=== PATIENT | female | born 1980 | race Two or more races ===

== ENCOUNTER 2022-11-22 19:20 | Inpatient (IN) | payer MEDICAID, OTHER ==
[~2022-11-22] VITALS: Ht 157.5 cm; Wt 124.0 kg
[2022-11-22 20:45] LABS: Basophils # (auto) 0 10 ^3/uL (0-0.2); Hematocrit 34.6 % (36.0-46.0); Hemoglobin 10.9 g/dL (12.2-16.2); Lymphocytes # (auto) 1.8 10 ^3/uL (0.4-5.4); Monocytes # (auto) 0.9 10 ^3/uL (0-1.3); White Blood Cell 8.9 10^3/uL (4.4-10.8)
[2022-11-22 20:47] LABS: Basophils % (auto) 0.3 % (0.0-2.0); Eosinophils # (auto) 0.1 10 ^3/uL (0-0.8); Eosinophils % (auto) 0.6 % (0.0-7.0); Lymphocytes % (auto) 19.9 % (10.0-50.0); Mean Corpuscular Hemoglobin 24.7 pg (28.0-32.0); Mean Corpuscular Hgb Conc. 31.6 g/dL (32.0-36.0); Mean Corpuscular Volume 78.4 fL (80.0-100.0); Monocytes % (auto) 9.6 % (0.0-12.0); Neutrophils # (auto) 6.2 10 ^3/uL (1.6-8.6); Neutrophils % (auto) 69.6 % (37.0-80.0); Red Blood Cells 4.42 10^6/uL (4.0-5.20); Red Cell Distribution Width 16.9 % (11.8-14.3)
[2022-11-22 21:02] LABS: Albumin 4.2 g/dL (3.4-5.0); Calcium 8.8 mg/dL (8.5-10.1); Potassium 3.3 mmol/L (3.5-5.1)
[2022-11-22 21:05] LABS: BUN/Creatinine Ratio 7.8; Bilirubin, Total 0.4 mg/dL (0.2-1.0); Total Protein 8.7 g/dL (6.4-8.2)
[2022-11-23] MEDS ORDERED: MORPHINE SULFATE 4 MG/ML SYR/VIAL IV ONE (04:45)
[2022-11-23] MEDS ORDERED: ONDANSETRON HCL 4 MG/2 ML VIAL IV ONE (04:45)
[2022-11-23] MEDS ORDERED: LACTATED RINGER'S 1,000 ML IV ONE (04:45)
[2022-11-23 05:38] LABS: Urine Blood 1+ /uL (Negative); Urine Specific Gravity 1.008 (1.001-1.035)
[2022-11-23] MEDS ORDERED: NITROGLYCERIN 0.4 MG SL TAB SL PRN (06:15)
[2022-11-23] MEDS ORDERED: SODIUM CHLORIDE 0.9% 1,000 ML IV SCH (06:15)
[2022-11-23] MEDS ORDERED: HYDROcodone-ACET 5/325MG TAB PO PRN (06:15)
[2022-11-23] MEDS ORDERED: MORPHINE SULFATE INJ 2 MG/ml SYRG IV PRN ×2 (06:15)
[2022-11-23] MEDS ORDERED: ONDANSETRON HCL 4 MG/2 ML VIAL IV PRN (06:15)
[2022-11-23] MEDS ORDERED: POTASSIUM CHL 20 Meq TABLET PO ONE (06:30)
[2022-11-23 07:05] LABS: Basophils # (auto) 0.1 10 ^3/uL (0-0.2); Eosinophils # (auto) 0 10 ^3/uL (0-0.8); Eosinophils % (auto) 0.3 % (0.0-7.0); Hemoglobin 9.7 g/dL (12.2-16.2); Lymphocytes # (auto) 1.4 10 ^3/uL (0.4-5.4); Lymphocytes % (auto) 16.3 % (10.0-50.0); Mean Corpuscular Hemoglobin 24.4 pg (28.0-32.0); Mean Corpuscular Hgb Conc. 31.3 g/dL (32.0-36.0); Monocytes # (auto) 0.8 10 ^3/uL (0-1.3); Monocytes % (auto) 9.2 % (0.0-12.0); Neutrophils # (auto) 6.3 10 ^3/uL (1.6-8.6); Neutrophils % (auto) 73.2 % (37.0-80.0); Nucleated Red Blood Cells % 0.1 %; Red Blood Cells 3.98 10^6/uL (4.0-5.20); Red Cell Distribution Width 17.1 % (11.8-14.3); White Blood Cell 8.6 10^3/uL (4.4-10.8)
[2022-11-23 07:20] LABS: Albumin 3.5 g/dL (3.4-5.0); Calcium 8.2 mg/dL (8.5-10.1)
[2022-11-23 07:24] LABS: BUN/Creatinine Ratio 11.6; Bilirubin, Total 0.8 mg/dL (0.2-1.0); Total Protein 7.6 g/dL (6.4-8.2)
[2022-11-23 07:28] LABS: Potassium 2.7 mmol/L (3.5-5.1)
[2022-11-23] MEDS ORDERED: FAMOTIDINE (10MG/ML) 2ML VL IV SCH (10:00)
[2022-11-23] MEDS ORDERED: POTASSIUM EFFERVESENT TAB 25 MEQ PO ONE (10:15)
[2022-11-23 13:42] LABS: Hepatitis B Surface Antibody Negative (Negative)
[2022-11-23 14:20] LABS: Hepatitis A Total Antibody Positive (Negative)
[2022-11-23 15:25] LABS: Hepatitis C Antibody Negative (Negative)
[2022-11-23] MEDS ORDERED: POTASSIUM EFFERVESENT TAB 25 MEQ GT ONE (16:00)
[2022-11-23] MEDS: SOD CHL 0.9%/ KCL 20MEQ 1,000 ML IV SCH (16:56)
[2022-11-23] MEDS ORDERED: LORazepam 0.5 MG TAB PO PRN (17:45)
[2022-11-23 22:00] VITALS: BP 153/86
[2022-11-23] MEDS: IBUPROFEN 600 MG TAB PO PRN (22:36)
[2022-11-23] MEDS: POTASSIUM EFFERVESENT TAB 25 MEQ GT SCH (22:37)
[2022-11-23 23:09] VITALS: BP 153/86
[2022-11-24 04:54] VITALS: BP 151/108
[2022-11-24] MEDS: SOD CHL 0.9%/ KCL 20MEQ 1,000 ML IV SCH (05:14)
[2022-11-24] MEDS: IBUPROFEN 600 MG TAB PO PRN (05:14)
[2022-11-24 06:20] LABS: % Iron Saturation 5.4 % (15-50)
[2022-11-24 06:25] LABS: Albumin 3.2 g/dL (3.4-5.0); Calcium 8.2 mg/dL (8.5-10.1); Magnesium 1.8 mg/dL (1.6-2.6); Potassium 3.8 mmol/L (3.5-5.1)
[2022-11-24 06:29] LABS: Basophils # (auto) 0 10 ^3/uL (0-0.2); Basophils % (auto) 0.2 % (0.0-2.0); Eosinophils # (auto) 0.1 10 ^3/uL (0-0.8); Hemoglobin 9.4 g/dL (12.2-16.2); Lymphocytes # (auto) 1.5 10 ^3/uL (0.4-5.4); Mean Corpuscular Volume 78.3 fL (80.0-100.0); Monocytes # (auto) 0.5 10 ^3/uL (0-1.3); Neutrophils # (auto) 3.7 10 ^3/uL (1.6-8.6)
[2022-11-24 06:30] LABS: BUN/Creatinine Ratio 8.8; Bilirubin, Total 0.5 mg/dL (0.2-1.0); Hematocrit 30.6 % (36.0-46.0); Lymphocytes % (auto) 25.6 % (10.0-50.0); Mean Corpuscular Hgb Conc. 30.7 g/dL (32.0-36.0); Monocytes % (auto) 9.1 % (0.0-12.0); Neutrophils % (auto) 64.1 % (37.0-80.0); Nucleated Red Blood Cells % 0.1 %; Red Blood Cells 3.91 10^6/uL (4.0-5.20); Total Protein 7.3 g/dL (6.4-8.2); White Blood Cell 5.8 10^3/uL (4.4-10.8)
[2022-11-24 07:33] LABS: Ferritin 13.3 ng/mL (10-322)
[2022-11-24] MEDS: POTASSIUM EFFERVESENT TAB 25 MEQ GT SCH (08:27)
[2022-11-24 09:00] VITALS: BP 128/75
[2022-11-24] MEDS ORDERED: THIAMINE 100mg/ml INJ (200mg/2ml VIAL) IV SCH (10:00)
[2022-11-24] MEDS ORDERED: MULTIPLE VITAMIN TAB PO SCH (10:00)
[2022-11-24 13:00] VITALS: BP 138/75
[2022-11-24] MEDS ORDERED: THIA100T13 PO (13:24)
[2022-11-24] MEDS ORDERED: FER325T PO (13:24)
[2022-11-24] MEDS ORDERED: ACAM1TAB4 OR (13:24)
[2022-11-24 15:33] VITALS: BP 138/75
== END 2022-11-24 16:40 | disposition home or self-care (01) | DRG 532 ==
LOC: ER 19:20 → OVERFLOW 11-23 06:07 → CENTRAL 11-23 21:50
PROVIDERS: ADMIT Nurse Practitioner Family; ATTEND Student in an Organized Health Care Education/Training Program
DX: D26.9 Other benign neoplasm of uterus, unspecified (principal); K75.81 Nonalcoholic steatohepatitis (NASH); Z68.43 Body mass index [BMI] 50.0-59.9, adult; E87.1 Hypo-osmolality and hyponatremia; D50.9 Iron deficiency anemia, unspecified; F10.90 Alcohol use, unspecified, uncomplicated; D75.839 Thrombocytosis, unspecified; R33.9 Retention of urine, unspecified; E66.9 Obesity, unspecified; E87.6 Hypokalemia; Z20.822 Contact with and (suspected) exposure to COVID-19; K59.00 Constipation, unspecified; K80.20 Calculus of gallbladder without cholecystitis without obstruction; R00.0 Tachycardia, unspecified; R79.89 Other specified abnormal findings of blood chemistry; N85.2 Hypertrophy of uterus; Z87.440 Personal history of urinary (tract) infections
CPT/HCPCS: 36415; 71045; 74176; 76705; 80053; 81003; 82607; 82728; 83540; 83550; 83690; 83735; 84132; 84484; 85025; 86704; 86706; 86708; 86803; 87340; 87426; 96361; 96365; 96375; G0378; J2405; J3490

== ENCOUNTER 2022-11-25 10:41 | Emergency (ER) | payer MEDICAID ==
[~2022-11-25] VITALS: Ht 157.5 cm; Wt 123.7 kg
[~2022-11-25 10:41] MED LIST: ACAM1TAB4 OR; FER325T PO; THIA100T13 PO
[2022-11-25 11:24] VITALS: BP 152/101
== END 2022-11-25 13:31 | disposition home or self-care (01) ==
LOC: ER 10:41
DX: R33.9 Retention of urine, unspecified (principal); Z46.6 Encounter for fitting and adjustment of urinary device
CPT/HCPCS: 51702

== ENCOUNTER 2022-11-29 13:05 | Emergency (ER) | payer MEDICAID ==
[~2022-11-29] VITALS: Ht 157.5 cm; Wt 120.2 kg
[2022-11-29 13:14] VITALS: BP 110/55
== END 2022-11-29 15:03 | disposition home or self-care (01) ==
LOC: ER 13:05
DX: Z46.6 Encounter for fitting and adjustment of urinary device (principal); Z86.2 Personal history of diseases of the blood and blood-forming organs and certain disorders involving the immune mechanism; Z79.899 Other long term (current) drug therapy